=== PATIENT | male | born 1960 | race Caucasian/White ===

== ENCOUNTER 2018-10-06 12:55 | Emergency (ER) | payer BC ==
--- NOTE | 2018-10-06 13:35 | UC ---
Skin Complaint HPI - HPI Summary HPI Summary: 58-year-old male presents with complaint and concern for left leg DVT. He has had multiple DVTs in the past. He noted that he had a small red spot on the anterior tran yesterday which was started to spread today with more tenderness warmth and reddened more since this morning. He in the past month or so was reduced on his overall toe from 20 mg down to 10 mg. He denies any chest pressure or shortness of breath. He denies any palpitations or concerns for pulmonary embolism. Resting can help to alleviate Symptoms. Palpating the area makes it worsen. - History of Current Complaint Chief Complaint: UCLowerExtremity Time Seen by Provider: 10/06/18 13:26 Stated Complaint: LT LEG SWELLING/PAIN Hx Obtained From: Patient Onset/Duration: Sudden Onset Pain Intensity: 6 - Allergy/Home Medications Allergies/Adverse Reactions: Allergies Allergy/AdvReac Type Severity Reaction Status Date / Time Penicillins Allergy Unknown Verified 10/06/18 13:05 Reaction Details Home Medications: Home Medications Atorvastatin* [Lipitor*] 80 mg PO DAILY 10/06/18 [History Confirmed 10/06/18] Cholecalciferol (Vitamin D3) [Vitamin D3] 1,000 unit PO DAILY 10/06/18 [History Confirmed 10/06/18] Empagliflozin [Jardiance] 10 mg PO DAILY 10/06/18 [History Confirmed 10/06/18] Insulin Glargine,Hum.rec.anlog [Marcos Gonzalez] 300 unit SQ DAILY 10/06/18 [ History Confirmed 10/06/18] Insulin LISPRO* [HumaLOG*] 40 units SUBCUT TID 10/06/18 [History Confirmed 10/06] Lisinopril TAB* [Prinivil TAB*] 2.5 mg PO DAILY 10/06/18 [History Confirmed ] Loratadine 10 mg PO DAILY 10/06/18 [History Confirmed 10/06/18] Magnesium Oxide [Magnesium] 400 mg PO DAILY 10/06/18 [History Confirmed 10/06/18 ] Rivaroxaban TAB(*) [Xarelto 10 mg (*)] 10 mg PO DAILY 10/06/18 [History Confirmed 10/06/18] Spironolactone TAB* [Aldactone TAB*] 100 mg PO BID 10/06/18 [History Confirmed 10/06/18] metFORMIN* [Glucophage 500 MG TAB *] 500 mg PO BID 10/06/18 [History Confirmed 10/06/18] PMH/Surg Hx/FS Hx/Imm Hx Previously Healthy: Yes Endocrine History: Diabetes, Dyslipidemia Cardiovascular History: Hypertension - Surgical History Surgical History: Yes Surgery Procedure, Year, and Place: APPY, VOCAL CHORDS GROWTH REMOVED,POSSIBLE SMALL METAL STITCH IN FOOT. HERNIA REPAIR. R SHOULDER - Family History Known Family History: Positive: Diabetes - Social History Alcohol Use: Rare Substance Use Type: None Smoking Status (MU): Never Smoked Tobacco Review of Systems All Other Systems Reviewed And Are Negative: Yes Motor: Positive: Other - Left leg swelling and redness Physical Exam Triage Information Reviewed: Yes Appearance: Well-Appearing, No Pain Distress, Well-Nourished Vital Signs: Initial Vital Signs Temp 97.4 F 10/06/18 13:05 Pulse 112 10/06/18 13:05 Resp 18 10/06/18 13:05 BP 114/75 10/06/18 13:05 Pulse Ox 96 10/06/18 13:05 Vital Signs Reviewed: Yes Eye Exam: Normal ENT Exam: Normal ENT: Positive: Hearing grossly normal Neck: Positive: 1 Respiratory Exam: Normal Cardiovascular Exam: Normal Musculoskeletal Exam: Normal Neurological Exam: Normal Psychological Exam: Normal Skin Exam: Normal Skin: Positive: Other - Left anterior tran with reddened raised area approximately 2 x 2 centimeters with tenderness and warmth setups. Negative Homans signs. No effusion. Course/Dx - Course Course Of Treatment: Ultrasound was performed to evaluate for DVT. Patient was signed out to the oncoming attending physician Dr. Degroot. - Diagnoses Provider Diagnosis: Left leg swelling Discharge - Sign-Out/Discharge Documenting (check all that apply): Sign-Out Patient Signing out patient TO: Dell Degroot - awaiting sono All imaging exams completed and their final reports reviewed: No - Discharge Plan Condition: Good Disposition: HOME Referrals: Non Staff,Doctor [Primary Care Provider] - 3 Days - Billing Disposition and Condition Condition: GOOD Disposition: Home
--- NOTE | 2018-10-06 15:36 | UC ---
- Results/Orders Results/Orders: IMPRESSION: #. No evidence for LEFT lower extremity deep venous thrombosis. #. Anterior LEFT lower leg superficial thrombophlebitis corresponding with the region of redness and pain Course/Dx - Diagnoses Provider Diagnoses: Left leg swelling Discharge - Sign-Out/Discharge Documenting (check all that apply): Patient Departure All imaging exams completed and their final reports reviewed: Yes - Discharge Plan Condition: Good Disposition: HOME Patient Education Materials: Superficial Thrombophlebitis (ED) Referrals: Non Staff,Doctor [Primary Care Provider] - 3 Days - Billing Disposition and Condition Condition: GOOD Disposition: Home
[2018-10-06 15:45] VITALS: BP 108/81
== END 2018-10-06 15:44 | disposition home or self-care (01) ==
LOC: UCCORT 12:55
DX: M79.89 Other specified soft tissue disorders (principal); E11.9 Type 2 diabetes mellitus without complications; Z79.4 Long term (current) use of insulin; Z79.84 Long term (current) use of oral hypoglycemic drugs; I10 Essential (primary) hypertension; I82.509 Chronic embolism and thrombosis of unspecified deep veins of unspecified lower extremity; Z79.01 Long term (current) use of anticoagulants
CPT/HCPCS: 99202; G0463